=== PATIENT | female | born 2000 | race Caucasian/White ===

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

== ENCOUNTER → 2020-03-19 | Outpatient (CLI) | payer MEDICAID ==
[2020-03-19 11:25] LABS: THYROID STIMULATING HORMONE 2.01 uIU/mL (0.47-4.68)
== END ==
LOC: OD 09:41
PROVIDERS: ATTEND Nurse Practitioner Family
DX: Q90.9 Down syndrome, unspecified (principal); R61 Generalized hyperhidrosis; Z68.52 Body mass index [BMI] pediatric, 5th percentile to less than 85th percentile for age
CPT/HCPCS: 36415; 83036; 84439; 84443